=== PATIENT | female | born 1975 ===

== ENCOUNTER 2022-09-15 13:48 | Outpatient (CLI) | payer OTHER ==
[~2022-09-15 13:48] MED LIST: CIPRO500 MG PO; SENOKOT TAB1 TAB PO; URIN D.S. TABLE1 TAB PO
== END 2022-09-15 13:58 | disposition home or self-care (01) ==
LOC: NUCLEAR 13:48
PROVIDERS: ATTEND Internal Medicine Sports Medicine
DX: M81.0 Age-related osteoporosis without current pathological fracture (principal)